=== PATIENT | male | born 1995 | race Caucasian/White ===

== ENCOUNTER 2018-11-06 14:09 | Outpatient (REF) | payer MEDICAID, SELFPAY ==
[2018-11-07 10:48] LABS: Syphilis Serology (RPR) Negative (Negative)
[2018-11-07 10:50] LABS: HIV-1/2 Ag & Ab Screen Negative (NEGAT)
[2018-11-08 11:14] LABS: HSV Type 1 Ab, IgG Negative; HSV Type 2 Ab, IgG Negative
== END 2018-11-06 14:29 ==
LOC: NCHCN 14:09
PROVIDERS: PCP Family Medicine; Visit Provider Family Medicine
DX: Z11.3 Encounter for screening for infections with a predominantly sexual mode of transmission (principal); Z11.4 Encounter for screening for human immunodeficiency virus [HIV]; Z11.59 Encounter for screening for other viral diseases
CPT/HCPCS: 87389; 86592; 86695; 86696

== ENCOUNTER 2018-11-07 08:28 | Outpatient (REF) | payer MEDICAID, SELFPAY ==
[2018-11-16 13:54] LABS: Chlamydia Result Negative; Specimen Description URINE
[2018-11-16 13:55] LABS: GC Result Negative
== END 2018-11-07 08:48 ==
LOC: NCHCN 08:28
PROVIDERS: PCP Family Medicine; Visit Provider Family Medicine
DX: Z11.3 Encounter for screening for infections with a predominantly sexual mode of transmission (principal)
CPT/HCPCS: 87491; 87591

== ENCOUNTER 2020-04-17 02:58 | Outpatient (CLI) | payer OTHER, SELFPAY ==
[2020-04-17 10:03] LABS: Abs Immature Grans 0.01 k/cumm (0.0-0.09); Absolute Basophil Count 0.01 k/cumm (0.0-0.2); Absolute Eosinophil Count 0.13 k/cumm (0.0-0.7); Absolute Lymphocyte Count 2.24 k/cumm (1.2-3.4); Absolute Monocyte Count 0.49 k/cumm (0.11-0.7); Absolute Neutrophil Count 2.02 k/cumm (1.2-6.7); Basophils % 0.2; Eosinophils % 2.7; HCT 42.6 % (40.0-50.0); Immature Grans % 0.2 %; Lymphocytes % 45.7; Mean Corp. HGB Concentration 35.2 g/dL (32.0-36.0); Mean Corpuscular Hemoglobin 29.9 pg (27.0-33.0); Mean Corpuscular Volume 84.9 fL (80-95); Mean Platelet Volume 8.8 fL (8.0-11.0); Neutrophils % 41.2; Platelet Count 272 x1000/uL (130-400); RBC 5.02 m/cumm (4.50-6.00); RBC Distribution Width 12.3 % (11.8-14.1)
[2020-04-17 10:57] LABS: ALT 25 U/L (16-63); AST 21 U/L (15-37); Albumin 4.4 g/dL (3.4-5.0); Alkaline Phosphatase 57 U/L (46-116); Bilirubin, Direct 0.16 mg/dL (0.00-0.20); Bilirubin, Total 0.7 mg/dL (0.2-1.0); Total Protein 7.5 g/dL (6.4-8.2)
[2020-04-17 11:26] LABS: C-Reactive Protein < 0.05 mg/dL (0.0-0.3)
== END 2020-04-17 03:18 ==
PROVIDERS: PCP Family Medicine; Visit Provider Internal Medicine Gastroenterology
DX: K50.019 Crohn's disease of small intestine with unspecified complications (principal)
CPT/HCPCS: 36415; 80076; 85025; 86140

== ENCOUNTER 2020-06-26 11:55 | Emergency (ER) | payer OTHER, SELFPAY ==
--- NOTE | 2020-06-26 12:00 | DI.RAD_ITS ---
EXAM: 2D digital imaging was performed. CLINICAL HISTORY: vomiting, r/o free air. COMPARISON: No exams were available for comparison TECHNIQUE: Supine and upright abdomen and PA chest views were performed. FINDINGS: BOWEL GAS PATTERN: Nondistended. No free air. CALCIFICATIONS: No radiopaque calcifications. OSSEOUS STRUCTURES: Normal for age. OTHER FINDINGS: None. LUNGS Clear. No pleural abnormality seen. HEART: Normal. MEDIASTINUM: Normal. OTHER FINDINGS: None. IMPRESSION: 1. Nonobstructive bowel gas pattern. 2. No radiopaque calculi. 3. No free air. 4. No acute pulmonary process. DATA REPOSITORY: RADIATION DOSE DELIVERED:
[2020-06-26 12:06] VITALS: BP 122/71; PULSE 87; RESP 16; TEMP 36.6; O2SAT 99
--- NOTE | 2020-06-26 12:07 | ED.GENADUL_ITS ---
Discharge Plan Disposition Patient Disposition: HOME Condition: Good Discharge Details Chief Complaint: Nausea/Vomit/Diar Clinical Impression: Gastritis, Nausea & vomiting Primary Care Provider: Vandana Aguilar ED Provider: Vitaliy Das Home Meds and New Rx's Prescriptions: New pantoprazole [Protonix] 40 mg tablet,delayed release (DR/EC) 40 mg PO DAILY 30 Days Qty: 30 RF: 0 famotidine 40 mg tablet 40 mg PO DAILY 30 Days Qty: 30 RF: 0 sucralfate [Carafate] 1 gram tablet 1 gm PO BID 30 Days Qty: 60 RF: 0 ondansetron HCl [Zofran] 4 mg tablet 4 mg PO Q8H Qty: 12 RF: 0 Continued infliximab [Remicade] 100 MG recon soln 0 IV q8 weeks RF: 0 Discharge Instructions Instructions: Gastritis (ED), Acute Nausea and Vomiting (ED) Additional Instructions: At this time you have notable gastritis. Your hemoglobin levels are stable, and you have no significant bleeding. At this time you have been rehydrated, and your vomiting has improved. Please take the medication as directed to help settle your stomach and decrease the ulcer that I suspect is currently irritating your stomach. The famotidine, pantoprazole, and sucralfate are for this. Please take the Zofran for nausea. Please avoid any spicy foods, tomato- based products, or greasy foods. If you notice any worsening of your symptoms, or any new symptoms such as vomiting, diarrhea, fever, chills, shortness of breath, chest pain, numbness, weakness, or fainting , please return immediately to the emergency department for reevaluation. Please follow up with your primary care provider as soon as possible for reassessment and reevaluation. As always, it was a pleasure participating in your medical care today. Referrals: Vandana Aguilar [Primary Care Provider] - Medical Decision Making 25-year-old male with a past medical history of Crohn's disease for which she takes Remicade presents today for evaluation of vomiting. Patient states that last night he had some mild stomach cramping, this morning he is been vomiting, multiple times. He did eat a burger and fries last night which is very normal for him. He had one beer. He denies any excessive alcohol or a ny spicy foods or tomato-based products. He states that these are food and drinks that he regularly has without difficulty. Today though he did notice 2 small episodes where there was small amounts of coffee grounds in his vomit. No bright red blood whatsoever though. He denies any new diarrhea, bloody stool, or abdominal pain. He admits to cramping in the epigastric region. He does state that he chronically has some right sided abdominal pain which is worse Crohn's disease areas but he states that this is otherwise unchanged and definitely not worsened. No other complaints at this time. No other modifying factors. He denies any chest pain, tearing or ripping sensation in his chest, difficulty breathing. Physical exam demonstrates surprisingly no significant abdominal tenderness, no pain at McBurney's point, negative [place] sign. 2:49 PM After 2 L of fluid, GI cocktail and antiacid medications the patient is feeling much better, he is able to tolerate p.o. He denies any pain or cramping. He feels well and would like to go. Initial laboratory work-up demonstrated normal CBC, stable electrolytes but he did have an elevated anion gap at 17, after the 2 L his anion gap returned to a normal limit of 9.5. Lipase normal the remainder of his electrolytes and laboratory function is normal. Patient feels well and is asking for discharge. I did discuss further imaging including CAT scan, and through shared decision making process weighing the risks and benefits patient would like to hold off on any additional imaging has his exam is unremarkable, and shows no signs of an acute surgical process. Patient will be discharged home with Protonix, famotidine, and Carafate. Also give Zofran as needed. I have extensively reviewed the treatment plan and discharge instr uctions with the patient. I have addressed all patient concerns at this time. The patient was made aware of what symptoms to monitor for that would warrant a return to the emergency department. Discussed the plan with the patient, they demonstrate verbal understanding and agreement with our assessment and plan at this time. HPI General Date/Time Provider Initiated Documentation: 06/26/20 11:55 . HPI Narrative: 25-year-old male with a past medical history of Crohn's disease for which she takes Remicade presents today for evaluation of vomiting. Patient states that last night he had some mild stomach cramping, this morning he is been vomiting, multiple times. He did eat a burger and fries last night which is very normal for him. He had one beer. He denies any excessive alcohol or any spicy foods or tomato-based products. He states that these are food and drinks that he regularly has without difficulty. Today though he did notice 2 small episodes where there was small amounts of coffee grounds in his vomit. No bright red blood whatsoever though. He denies any new diarrhea, bloody stool, or abdominal pain. He admits to cramping in the epigastric region. He does state that he chronically has some right sided abdominal pain which is worse Crohn's disease areas but he states that this is otherwise unchanged and definitely not worsened. No other complaints at this time. No other modifying factors. He denies any chest pain, tearing or ripping sensation in his chest, difficulty breathing. Related Data Home Medications Medication Instructions Recorded Confirmed infliximab [Remicade] 0 IV q8 weeks vial 06/19/15 famotidine 40 mg PO DAILY 30 Days #30 tab 06/26/20 ondansetron HCl [Zofran] 4 mg PO Q8H #12 tab 06/26/20 pantoprazole [Protonix] 40 mg PO DAILY 30 Days #30 tab 06/26/20 sucralfate [Carafate] 1 gm PO BID 30 Days #60 tab 06/26/20 Previous Rx's Medication Instructions Recorded famotidine 40 mg PO DAILY 30 Days #30 tab 06/26/20 ondansetron HCl [Zofran] 4 mg PO Q8H #12 tab 06/26/20 pantoprazole [Protonix] 40 mg PO DAILY 30 Days #30 tab 06/26/20 sucralfate [Carafate] 1 gm PO BID 30 Days #60 tab 06/26/20 Allergies Allergy/AdvReac Type Severity Reaction Status Date / Time No Known Allergies Allergy Unverified 12/12/16 21:36 Review of Systems All systems reviewed & are unremarkable except as noted in HPI and below PFSH Social History Smoking/Tobacco Use Status: Never Alcohol Intake: current Alcohol Intake frequency: 0-2 drinks per day Alcohol type: beer Drug use: Never Substance use type: does not use Do you feel safe at home: Yes Do you feel safe in your relationship?: Yes Exam Narrative Exam Narrative: 1.Const: Well-nourished, Well-developed, appearing stated age 2.Eyes: PERRL, no conjunctival injection, and symmetrical lids. 3.ENT: Atraumatic external nose and ears. Moist MM. Neck: Symmetric, trachea midline, No thyromegaly. 4.CVS: +S1/S2, No murmurs or gallops. Peripheral pulses 2+ and equal in all extremities. Brisk capillary refill in all extremities. 5.RESP: Unlabored respiratory effort. Clear to auscultation bilaterally. No wheezes rales or rhonchi 6.GI: Soft, Nontender/Nondistended, No hepatosplenomegaly. No guarding or rebound. Minimal achiness in the epigastric region but no significant pain. Remainder his abdominal exam demonstrates no signs of an acute surgical abdomen, no pain or McBurney's point, negative [place] sign. 7.MSK: Normocephalic/Atraumatic, Extremities w/o deformity or ttp No cyanosis or clubbing, Normal movement of all extremities 8.Skin: Warm, Dry. No rashes or lesions. 9.Neuro: artist mannequin coloring II-XII grossly intact. Sensation grossly intact, no focal neurologic deficits. 10.Psych: (AAO) x3. Appropriate mood and affect
[2020-06-26] MEDS: Normal Saline 1,000 ML 1000 ML IV (12:15)
[2020-06-26] MEDS: Ondansetron 4 MG/2 ML VIAL IVP (12:15)
[2020-06-26 12:22] LABS: Abs Immature Grans 0.02 10^3/uL (0.0-0.06); Absolute Basophil Count 0.02 10^3/uL (0.0-0.2); Absolute Eosinophil Count 0.02 10^3/uL (0.0-0.7); Absolute Lymphocyte Count 1.37 10^3/uL (1.2-3.4); Absolute Neutrophil Count 8.94 10^3/uL (1.2-6.7); Basophils % 0.2; Eosinophils % 0.2; HCT 44.6 % (40.0-50.0); HGB 15.8 g/dL (13.5-17.5); Immature Grans % 0.2; Lymphocytes % 12.7; MCH 29.8 pg (27.0-33.0); MCHC 35.4 % (32.0-36.0); MCV 84.2 fL (80-95); MPV 8.6 fL (8.0-11.0); Monocytes % 3.7; Nucleated RBC 0 %; Platelet Count 297 10^3/uL (130-400); RDW 11.9 % (11.8-14.1); RDW-SD 35.9 fL; WBC 10.77 10^3/uL (4.4-10.8)
[2020-06-26] MEDS: FAMOTIDINE 20 MG/50 ML BAG 200 MG IVPB (12:22)
[2020-06-26 12:34] LABS: ALT 24 U/L (16-63); AST 25 U/L (15-37); Albumin 4.7 g/dL (3.4-5.0); Alkaline Phosphatase 58 U/L (46-116); Anion Gap 17.3 mmol/L (3-11); BUN 14 mg/dL (7-18); Bilirubin, Total 0.7 mg/dL (0.2-1.0); CO2 19.7 mmol/L (21.0-32.0); CREATININE 1.18 mg/dL (0.70-1.30); Calcium 9.6 mg/dL (8.5-10.1); Chloride 101 mmol/L (98-107); Glucose 122 mg/dL (74-106); Lipase 77 U/L (73-393); Potassium 3.7 mmol/L (3.5-5.1); Sodium 138 mmol/L (136-145); Total Protein 8.5 g/dL (6.4-8.2)
[2020-06-26] MEDS: Sucralfate 1 GM TAB PO (13:22)
[2020-06-26] MEDS: Lactated Ringers 1,000 ML 1000 ML IV (13:28)
[2020-06-26] MEDS: Pantoprazole 40 MG VIAL IVP (13:33)
[2020-06-26 14:23] LABS: Anion Gap 9.5 mmol/L (3-11); BUN 13 mg/dL (7-18); CO2 25.5 mmol/L (21.0-32.0); Calcium 8.5 mg/dL (8.5-10.1); Chloride 106 mmol/L (98-107); Glucose 85 mg/dL (74-106); Potassium 4.2 mmol/L (3.5-5.1); Sodium 141 mmol/L (136-145)
[2020-06-26 14:50] VITALS: BP 116/70; PULSE 84; RESP 16; O2SAT 98
== END 2020-06-26 14:53 | disposition home or self-care (01) ==
PROVIDERS: Emergency Provider Student in an Organized Health Care Education/Training Program; PCP Family Medicine
DX: K29.00 Acute gastritis without bleeding (principal); R11.2 Nausea with vomiting, unspecified; K50.90 Crohn's disease, unspecified, without complications
CPT/HCPCS: 36415; 80048; 80053; 83690; 96361; 96365; 96375; 99284; 74022; 85025; J2405

== ENCOUNTER 2020-11-05 18:47 | Outpatient (REF) | payer OTHER, SELFPAY ==
[2020-11-05 22:20] LABS: HCT 44.7 % (40.0-50.0); HGB 15.4 g/dL (13.5-17.5); MCH 29.8 pg (27.0-33.0); MCHC 34.5 % (32.0-36.0); MCV 86.5 fL (80-95); MPV 9.2 fL (8.0-11.0); Platelet Count 284 10^3/uL (130-400); RBC 5.17 10^6/uL (4.36-5.78); RDW 12.1 % (11.8-14.1); RDW-SD 38.7 fL; WBC 5.46 10^3/uL (4.4-10.8)
[2020-11-05 22:37] LABS: ALT 29 U/L (16-63); AST 22 U/L (15-37); Albumin 4.4 g/dL (3.4-5.0); Alkaline Phosphatase 59 U/L (46-116); Bilirubin, Direct 0.14 mg/dL (0.00-0.20); Bilirubin, Total 0.7 mg/dL (0.2-1.0); Total Protein 7.7 g/dL (6.4-8.2)
[2020-11-05 22:38] LABS: C-Reactive Protein < 0.05 mg/dL (0.0-0.3)
[2020-11-08 15:40] LABS: Adalimumab QN with Reflex Ab 16.1 mcg/mL
== END 2020-11-05 19:07 ==
LOC: NCHCN 18:47
PROVIDERS: PCP Family Medicine; Visit Provider Family Medicine
DX: K50.90 Crohn's disease, unspecified, without complications (principal)
CPT/HCPCS: 80076; 83520; 85027; 86140

== ENCOUNTER 2021-09-08 14:50 | Outpatient (CLI) | payer OTHER, SELFPAY ==
--- NOTE | 2021-09-08 14:33 | DI.RAD_ITS ---
Exam(s) XR KNEE RT 3V AP,LAT,MAGGI EXAM: XR KNEE RT 3V AP,LAT,MAGGI CLINICAL HISTORY: right knee pain. TECHNIQUE: 2D digital imaging was performed. COMPARISON: No exams were available for comparison FINDINGS: BONES: No acute fracture is present. No bony destructive lesion is seen. Enthesophyte quadriceps ins ertion on the patella JOINTS: The knee is normally aligned. No joint effusion is seen. SOFT TISSUE: Normal. IMPRESSION: Patellar enthesophyte. DATA REPOSITORY: RADIATION DOSE DELIVERED:
== END 2021-09-08 14:51 | disposition home or self-care (01) ==
LOC: DIORS 14:52
PROVIDERS: PCP Family Medicine; Referring Provider Family Medicine; Visit Provider Student in an Organized Health Care Education/Training Program
DX: M25.561 Pain in right knee (principal); M76.51 Patellar tendinitis, right knee
CPT/HCPCS: 73562

== ENCOUNTER 2023-03-04 01:55 | Outpatient (CLI) | payer OTHER, SELFPAY ==
--- OUTSIDE RECORDS SUMMARY | 2023-03-04 02:06 | XMS_ITS | CCD ---
Author Name Unknown Address [address] [place] [address] [phone] Organization Unknown Address [address] [place] [address] [phone] Care Team Providers Care Coding Analyst Name Role Phone DUSTIN BISHOP Attending Physician [phone] Vital Signs Unknown or Not Available. Allergies Allergy Code Allergy Type Reaction Status No Known Drug Allergies 0 No known drug allergies Active Procedures Unknown or Not Available. History of Immunizations Unknown or Not Available. Problems Problem Code Start Date Resolved Date Status Crohn's disease of colon 10313811 Active History of Crohns disease [id number] 02/26 Resolved Results Unknown or Not Available. Active Medications Medication Code Dose Units Frequency Route Modificatio n Start Date/Time predniSONE 20MG Oral Tablet 419313 2 TABLET DAILY WITH FOOD ORAL 02/27/2023 09:20 Prescription Detail TAKE 2 TABLET ORAL DAILY WITH FOOD Humira 40MG/0.4ML Subcutaneous Solution [id number] 02/27/2023 09:18 Medications Administered During Visit Unknown or Not Available. Encounters Unknown or Not Available. Social History Smoking Status Code Start Date End Date Never smoker [id number] Patient Decision Aids Unknown or Not Available. Discharge Instructions You were admitted to [facility] on 02/26/2023 01:57 You were discharged from [facility] on 02/27/2023 01:58 Should you have any questions prior to discharge, please contact a member of your healthcare team. If you have left the hospital and have any questions, please contact your primary care physician. Chief Complaint and Reason For Visit Unknown or Not Available. Function Status Unknown or Not Available. Plan of Care Unknown or Not Available. Referral/Transition of Care Unknown or Not Available.
--- OUTSIDE RECORDS SUMMARY | 2023-03-04 02:06 | XMS_ITS | CCD ---
Author Name Unknown Address [address], [place] [id number] Organization Unknown Address [address], [place] [id number] Care Team Providers Care Gauge And Weigh Machine Adjuster Name Role Phone DUSTIN BISHOP Attending Physician [phone] JAKOB COY Er Physician [phone] JAKOB COY Rounding (Secondary) Physician 8 [phone] ARACELIS Montes De Oca Registered Nurse [phone] Vital Signs Vital Sign Value Unit Date/Time Recent/Initial ? BMI (Body Mass Index) 26.63 kg/m^2 02/26/2023 08: 45 Initial VS Weight Measured 165 lbs 02/26/2023 08:45 Ini tial VS Height 66 in 02/26/2023 08:45 Initial VS BSA (Body Surface Area) 1.87 m^2 02/26/2023 0 8:45 Initial VS BP Systolic 125 mmHg 02/26/2023 08:45 Initial VS BP Diastolic 81 mmHg 02/26/2023 08:45 Initia l VS Respiratory Rate 18 bpm 02/26/2023 08:45 In itial VS Heart Rate 87 bpm 02/26/2023 08:45 Initial VS O2 % BldC Oximetry 100 % 02/26/2023 08:45 Initial VS Body Temperature 35.6 degrees 02/26/2023 08:45 In itial VS BP Systolic 111 mmHg 02/27/2023 07:36 Most Re cent VS BP Diastolic 61 mmHg 02/27/2023 07:36 Most R ecent VS Respiratory Rate 18 bpm 02/27/2023 07:[address] Recent VS Heart Rate 70 bpm 02/27/2023 07:36 Most Rec ent VS O2 % BldC Oximetry 98 % 02/27/2023 07:36 Most Recent VS Body Temperature 36.9 degrees 02/27/2023 07:[address] Recent VS Allergies Allergy Code Allergy Type Reaction Status No Known Drug Allergies 0 No known drug allergies Active Procedures Unknown or Not Available. History of Immunizations Unknown or Not Available. Problems Problem Code Start Date Resolved Date Status Crohn's disease of colon 88430025 Active History of Crohns disease [id number] 02/26 Resolved Results BASIC METABOLIC PANEL (BMP) - Collect Date/Time: 02/27/2023 07:10 Test Name Code Test Result Test Units Test Ref Rang e GLUCOSE 2345-7 122 mg/dL L=70 H=116 BUN 3094-0 12 mg/dL L=6 H=25 CREATININE 2160-0 0.93 mg/dL L=0.67 H=1.17 SODIUM SERUM 2951-2 138 mmol/L L=136 H=145 POTASSIUM SERUM 2823-3 3.8 mmol/L L=3.4 H=5 .2 CHLORIDE SERUM 2075-0 105 mmol/L L=96 H=110 CARBON DIOXIDE (CO2) 2028-9 25 mmol/L L=22 H=34 ANION GAP 53305-0 8.5 mmol/L CALCIUM SERUM 07493-1 8.4 mg/dL L=8.2 H=10. 2 AGE 27 years eGFR (non-Afr.Amer.) 58693-4 96 mL/min eGFR (Afr-Prydeinig) 67753-9 116 mL/min COMPREHENSIVE METABOLIC PANE L (CMP) - Collect Date/Time: 02/26/2023 08:29 Test Name Code Test Result Test Units Test Ref Rang e GLUCOSE 2345-7 118 mg/dL L=70 H=116 BUN 3094-0 10 mg/dL L=6 H=25 CREATININE 2160-0 1.17 mg/dL L=0.67 H=1.17 SODIUM SERUM 2951-2 140 mmol/L L=136 H=145 POTASSIUM SERUM 2823-3 2.9 mmol/L L=3.4 H=5 .2 CHLORIDE SERUM 2075-0 102 mmol/L L=96 H=110 CARBON DIOXIDE (CO2) 2028-9 21 mmol/L L=22 H=34 ANION GAP 12628-7 17.5 mmol/L CALCIUM SERUM 52300-8 9.4 mg/dL L=8.2 H=10. 2 BILIRUBIN TOTAL 1975-2 0.8 mg/dL L=0.0 H=1 .3 ALK. PHOS. 6768-6 55 U/L L=46 H=116 SGOT (AST) 1920-8 24 U/L L=15 H=37 SGPT (ALT) 1742-6 28 U/L L=12 H=78 TOTAL PROTEIN 2885-2 8.4 gm/dL L=6.0 H=8.0 ALBUMIN 1751-7 4.7 gm/dL L=3.4 H=5.0 AGE 27 years eGFR (non-Afr.Amer.) 15260-5 74 mL/min eGFR (Afr-Prydeinig) 72877-1 89 mL/min LACTIC ACID - Collect Date/T stalin: 02/27/2023 07:10 Test Name Code Test Result Test Units Test Ref Rang e LACTIC ACID 69987-0 1.1 mmol/L L=0.7 H=2.1 LACTIC ACID - Collect Date/T stalin: 02/26/2023 08:29 Test Name Code Test Result Test Units Test Ref Rang e LACTIC ACID 07055-1 7.4 mmol/L L=0.7 H=2.1 LIPASE* NEW - Collect Date/T stalin: 02/26/2023 08:29 Test Name Code Test Result Test Units Test Ref Rang e LIPASE. 33 U/L L=16 H=77 CBC W/ DIFFERENTIAL* - Colle ct Date/Time: 02/27/2023 07:10 Test Name Code Test Result Test Units Test Ref Rang e WBC 6690-2 10.55 th/cmm L=5.00 H=10.00 NEUT % 85.1 % L=40.0 H=80.0 LYMPH % 11.0 % L=10.0 H=50.0 MONO % 15502-3 2.9 % L=2.0 H=12.0 EOS % 0.0 % L=0.0 H=8.0 BASO % 0.1 % L=0.0 H=3.0 IG % 2514-8 0.9 % L=0.0 H=1.1 NRBC % 14029-4 0.0 % L=0.0 H=0.0 NEUT abs count 751-8 9.0 th/cmm L=1.6 H=8. 4 LYMPH abs count 731-0 1.2 th/cmm L=1.5 H=4 .0 MONO abs count 742-7 0.3 th/cmm L=0.2 H=1. 0 EOS abs count 711-2 0.0 th/cmm L=0.0 H=0.5 BASO abs count 704-7 0.0 th/cmm L=0.0 H=0. 2 IG abs count 30428-2 0.1 th/cmm L=0.0 H=0.1 NRBC abs count 46156-5 0.0 mil/cmm L=0.0 H=0. 0 RBC 789-8 4.60 mil/cmm L=4.30 H=6.20 HEMOGLOBIN 718-7 13.8 gm/dL L=13.0 H=17.0 HEMATOCRIT 4544-3 40 % L=45 H=52 MCV 787-2 86 fL L=82 H=92 MCH 785-6 30.0 pg L=27.0 H=31.0 MCHC 786-4 34.8 % L=32.0 H=36.0 RDW-SD 788-0 37.8 fL L=39.0 H=49.0 PLATELET COUNT 777-3 242 th/cmm L=150 H=45 0 CBC W/ DIFFERENTIAL* - [facility] ct Date/Time: 02/26/2023 08:29 Test Name Code Test Result Test Units Test Ref Rang e WBC 6690-2 11.50 th/cmm L=5.00 H=10.00 NEUT % 62.9 % L=40.0 H=80.0 LYMPH % 30.9 % L=10.0 H=50.0 MONO % 25003-5 5.2 % L=2.0 H=12.0 EOS % 0.2 % L=0.0 H=8.0 BASO % 0.3 % L=0.0 H=3.0 IG % 2514-8 0.5 % L=0.0 H=1.1 NRBC % 06489-6 0.0 % L=0.0 H=0.0 NEUT abs count 751-8 7.2 th/cmm L=1.6 H=8. 4 LYMPH abs count 731-0 3.6 th/cmm L=1.5 H=4 .0 MONO abs count 742-7 0.6 th/cmm L=0.2 H=1. 0 EOS abs count 711-2 0.0 th/cmm L=0.0 H=0.5 BASO abs count 704-7 0.0 th/cmm L=0.0 H=0. 2 IG abs count 85773-9 0.1 th/cmm L=0.0 H=0.1 NRBC abs count 89617-6 0.0 mil/cmm L=0.0 H=0. 0 RBC 789-8 5.42 mil/cmm L=4.30 H=6.20 HEMOGLOBIN 718-7 15.8 gm/dL L=13.0 H=17.0 HEMATOCRIT 4544-3 46 % L=45 H=52 MCV 787-2 85 fL L=82 H=92 MCH 785-6 29.2 pg L=27.0 H=31.0 MCHC 786-4 34.5 % L=32.0 H=36.0 RDW-SD 788-0 36.1 fL L=39.0 H=49.0 PLATELET COUNT 777-3 339 th/cmm L=150 H=45 0 Active Medications Medication Code Dose Units Frequency Route Modificatio n Start Date/Time predniSONE 20MG Oral Tablet 778478 2 TABLET DAILY WITH FOOD ORAL 02/27/2023 09:20 Prescription Detail TAKE 2 TABLET ORAL DAILY WITH FOOD Humira 40MG/0.4ML Subcutaneous Solution [id number] 02/27/2023 09:18 Medications Administered During Visit Medication Dose Units Frequency Route Date/Time of Last Dose ONDANSETRON INJ SDV: 4MG/2ML 8 MG X1 I TRUCK HOP 02/26/2023 08:43 SODIUM CHLORIDE 0.9% 1000ML 1000 ML X1 IV 02/26/2023 08:44 FentaNYL INJ SYRINGE: 50MCG/ML 50 MCG X1 IVP 02/26/2023 08:43 POTASSIUM CHL IN NS: 20mEq/1000ML 1000 ML X1 IV 02/26/2023 09:4 4 HYDROmorphone INJ SYRINGE: 0.5MG/0.5ML 0.5 MG X1 IVP 02/26/2023 09:4 0 CefTRIAXone IVPB: 1GM/50ML 1 GM X1 IVP B 02/26/2023 10:13 MetroNIDAZOLE IVPB PREMIX: 500MG/100ML 500 MG X1 IVPB 02/26/2023 10:4 0 ACETAMINOPHEN INJ IVPB: 1000MG/100ML 1000 MG X1 IVPB 02/26/2023 10:1 9 POTASSIUM CHL IN NS: 20mEq/1000ML 1000 ML CONT IV 02/26/2023 19:5 4 HYDROmorphone INJ SYRINGE: 0.5MG/0.5ML 0.5 MG PRN Q4H IVP 02/26/2023 11:5 2 ONDANSETRON INJ SDV: 4MG/2ML 4 MG PRN Q4H I TRUCK HOP 02/26/2023 15:23 MetroNIDAZOLE IVPB PREMIX: 500MG/100ML 500 MG Q6H IVPB 02/27/2023 04:1 0 METOCLOPRAMIDE INJ SDV: 10MG/2ML 10 MG PRN Q4H IVP 02/26/2023 18:1 4 MethylPREDNISolone SUC INJ SDV:40MG/1ML 20 MG Q6H IVP 02/27/2023 05:2 3 PredniSONE TABLET: 20MG 40 MG DAILY WITH FOOD PO 02/27/2023 09:44 Encounters Encounter Diagnosis Diagnosis Code Start Date Crohn's disease, unspecified, with other complic ation [id number] 02/26/2023 Social History Smoking Status Code Start Date End Date Never smoker [id number] Patient Decision Aids Patient Decision Aid Crohn Disease LF - LOW FIBER DIET Low Fat Diet Patient Portal Access Discharge Instructions You were admitted to [facility] on 02/26/2023 10:26 with a principal diagnosis of Crohn's disease, unspecified, with other complication You had the following tests done:BASIC METABOLIC PANEL (BMP)CBC W/ DIFFERENTIAL*LACTIC ACIDCBC W/ DIFFERENTIAL*COMPREHENSIVE METABOLIC PANEL (CMP)LACTIC ACIDLIPASE* NEW You were discharged from [facility] on 02/27/2023 10:50 Should you have any questions prior to discharge, please contact a member of your healthcare team. If you have left the hospital and have any questions, please contact your primary care physician. Chief Complaint and Reason For Visit Chief Complaint Date of Onset CROHNS COLITIS 02/26/2023 Function Status Unknown or Not Available. Plan of Care Unknown or Not Available. Referral/Transition of Care Unknown or Not Available.
[2023-03-04 13:55] LABS: ESR 3 mm/hr (0-15)
[2023-03-04 14:31] LABS: C-Reactive Protein < 0.05 mg/dL (0.0-0.3)
== END 2023-03-04 01:56 | disposition home or self-care (01) ==
LOC: LBO 01:56
PROVIDERS: PCP Family Medicine; Visit Provider Internal Medicine Gastroenterology
DX: K50.012 Crohn's disease of small intestine with intestinal obstruction (principal)
CPT/HCPCS: 36415; 85652; 86140

== ENCOUNTER 2023-03-05 11:30 | Outpatient (REF) | payer OTHER, SELFPAY ==
[2023-03-08 15:52] LABS: Calprotectin <50.0 mcg/g
== END 2023-03-05 11:31 | disposition home or self-care (01) ==
LOC: LBN 11:30
PROVIDERS: PCP Family Medicine; Visit Provider Internal Medicine Gastroenterology
DX: K50.012 Crohn's disease of small intestine with intestinal obstruction (principal)
CPT/HCPCS: 83993

== ENCOUNTER 2024-09-25 01:10 | Outpatient (CLI) | payer OTHER, SELFPAY ==
--- NOTE | 2024-09-25 | DI.RAD_ITS ---
Exam(s) XR KNEE RT 3V AP,LAT,MAGGI EXAM: XR KNEE RT 3V AP,LAT,MAGGI CLINICAL HISTORY: RT KNEE PAIN,M25.561. TECHNIQUE: 2D digital imaging was performed of the right knee. Three views obtained. AP, lateral an d PA tunnel views were obtained. COMPARISON: CR XR KNEE RT 3V AP,LAT,MAGGI from 09/08/2021 FINDINGS: BONES: No acute fracture is present. No bony destructive lesion is seen. There is an enthesophyte at the anterior patella. JOINTS: The knee is normally aligned. No joint effusion is seen. SOFT TISSUE: Normal. IMPRESSION: No acute abnormality. The joint spaces are well maintained. DATA REPOSITORY: RADIATION DOSE DELIVERED:
== END 2024-09-25 01:30 ==
LOC: DI 01:10
PROVIDERS: PCP Family Medicine; Visit Provider Family Medicine
DX: M25.561 Pain in right knee (principal)
CPT/HCPCS: 73562

== ENCOUNTER 2024-10-11 01:16 | Outpatient (CLI) | payer OTHER, SELFPAY ==
--- NOTE | 2024-10-11 | DI.MRI_ITS ---
Exam(s) MR LOWER JOINT RT WO EXAM: MR LOWER JOINT RT WO CLINICAL HISTORY: PAIN RT KNEE M25.561 TECHNIQUE: Multiplanar multisequence MRI of the knee was performed. COMPARISON: CR XR KNEE RT 3V AP,LAT,MAGGI from 09/25/2024 FINDINGS: EFFUSION: There is a minimal amount of increased joint fluid. There is no prominent joint effusion. There is no Boss cyst in the popliteal fossa. MARROW:There is no evidence of fracture, bone contusion, nor osteochondral defects.. There are no si gnificant osseous lesions. PATELLOFEMORAL COMPARTMENT: There is some thickening of the distal quadriceps tendon with mild increa sed intrasubstance signal at this level. There is also mild increased signal abnormality in the uppe r prepatellar fascia and pre quadriceps space soft tissue. There is very mild edema signal evident in the patella. There is very mild increased signal in the s upero lateral aspect of Hoffa fat pad. There is no significant abnormal signal in the patellar ligam ent. There is no significant thinning of the retropatellar cartilage. No evidence of fissure nor signific ant chondral defect. No osteochondral defect at this level.There is no intraosseous signal to sugges t recent patellar dislocation. There is some mild increased signal seen within the anterior aspect o f the medial patellar retinaculum. There is no abnormal signal within the contiguous vastus medialis muscle. No abnormal signal in the lateral patellar retinaculum. CRUCIATE LIGAMENTS: Mild increased signal in the ACL but no high-grade tear.The posterior cruciate li gament is intact. MEDIAL COMPARTMENT/MEDIAL MENISCUS: There are no tears of the medial meniscus evident.. There are no chondral defects, osteochondral defects, subarticular marrow edema, nor osteophytes evid ent in the medial compartment.. MEDIAL COLLATERAL LIGAMENT: Intact LATERAL COMPARTMENT/LATERAL MENISCUS: There is no evidence of lateral meniscal tear.There are no gala dral defects, osteochondral defects, subarticular marrow edema, nor osteophytes evident. ILIOTIBIAL BAND: Intact LATERAL COLLATERAL LIGAMENT COMPLEX: The fibular collateral ligament is intact. The biceps femoris t endon is intact.Popliteus muscle and tendon are intact. IMPRESSION: 1. The main findings here are in the region of the distal quadriceps tendon which exhibits some thick ening and abnormal intrasubstance signal consistent with tendinitis and mild partial-thickness tearin g. There is also mild increased signal in the immediate pre-quadriceps and upper prepatellar fascia. These findings are consistent with overuse related injury at this level, most commonly seen among c yclists. Similar findings can sometimes be seen with direct trauma. There does appear to be some mi ld generalized edema in the patella here. Also some intrasubstance injury signal in the medial cantrell lar retinaculum but without high-grade tear of this structure nor intraosseous signal which would sug gest recent lateral patellar dislocation. 2. There is no abnormal signal evident within the inferior pole of the patella nor within the patella r ligament. 3. No evidence of meniscal tear, collateral ligament tears, nor significant cruciate ligament tears. 4. No significant degenerative changes in the medial and lateral compartments and there is minimal if any significant thinning of the retropatellar cartilage. DATA REPOSITORY:
== END 2024-10-11 01:36 ==
LOC: DI 01:16
PROVIDERS: PCP Family Medicine; Visit Provider Family Medicine
DX: M25.561 Pain in right knee (principal)
CPT/HCPCS: 73721

== ENCOUNTER 2025-01-04 12:43 | Outpatient (REF) | payer OTHER, SELFPAY ==
[2025-01-04 23:04] LABS: HIV-1/2 Ag & Ab Screen Negative (Negative)
[2025-01-07 10:30] LABS: Syphilis Serology (RPR) Negative (Negative)
== END 2025-01-04 12:44 | disposition home or self-care (01) ==
LOC: NCHCN 12:43
PROVIDERS: PCP Family Medicine; Visit Provider Family Medicine
DX: Z11.3 Encounter for screening for infections with a predominantly sexual mode of transmission (principal)
CPT/HCPCS: 87389; 86592

== ENCOUNTER 2025-01-07 14:03 | Outpatient (REF) | payer OTHER, SELFPAY ==
[2025-01-08 12:00] LABS: Chlamydia Result Negative (Negative); GC Result Negative (Negative)
== END 2025-01-07 14:04 | disposition home or self-care (01) ==
LOC: NCHCN 14:03
PROVIDERS: PCP Family Medicine; Visit Provider Family Medicine
DX: Z11.3 Encounter for screening for infections with a predominantly sexual mode of transmission (principal)
CPT/HCPCS: 87491; 87591

== ENCOUNTER 2025-03-27 12:54 | Outpatient (CLI) | payer OTHER, SELFPAY ==
[2025-03-27 12:55] LABS: Abs Immature Grans 0.02 10^3/uL (0.0-0.06); Absolute Basophil Count 0.02 10^3/uL (0.0-0.2); Absolute Eosinophil Count 0.08 10^3/uL (0.0-0.7); Absolute Lymphocyte Count 2.42 10^3/uL (1.2-3.4); Absolute Monocyte Count 0.61 10^3/uL (0.1-0.8); Absolute Neutrophil Count 4.18 10^3/uL (1.2-6.7); Basophils % 0.3 %; Eosinophils % 1.1 %; HCT 44.9 % (40.0-50.0); HGB 15.2 g/dL (13.5-17.5); Immature Grans % 0.3 %; MCH 29.9 pg (27.0-33.0); MCHC 33.9 % (32.0-36.0); MCV 88 fL (80-95); MPV 8.4 fL (8.0-11.0); Monocytes % 8.3 %; Platelet Count 248 10^3/uL (130-400); RBC 5.09 10^6/uL (4.36-5.78); RDW 11.8 % (11.8-14.1); RDW-SD 38.1 fL; WBC 7.33 10^3/uL (4.4-10.8)
[2025-03-27 13:20] LABS: ALT 24 U/L (16-63); AST 26 U/L (15-37); Albumin 4.3 g/dL (3.4-5.0); Alkaline Phosphatase 55 U/L (46-116); Bilirubin, Direct 1.1 mg/dL (0.0-0.2); Total Protein 7.9 g/dL (6.4-8.2)
[2025-03-27 13:21] LABS: C-Reactive Protein < 0.50 mg/dL (<or=0.5)
[2025-03-29 14:29] LABS: TB Interpretation Negative (Negative)
[2025-04-01 13:11] LABS: Adalimumab QN with Reflex Ab 13.7 mcg/mL
== END 2025-03-27 12:55 | disposition home or self-care (01) ==
LOC: LBO 12:54
PROVIDERS: PCP Family Medicine; Visit Provider Internal Medicine Gastroenterology
DX: K50.012 Crohn's disease of small intestine with intestinal obstruction (principal); Z51.81 Encounter for therapeutic drug level monitoring; Z79.620 Long term (current) use of immunosuppressive biologic
CPT/HCPCS: 36415; 80076; 83520; 85025; 86140; 86480